=== PATIENT | female | born 2000 | race Two or more races ===

== ENCOUNTER 2024-09-05 12:39 | Emergency (ER) | payer MEDICAID, OTHER ==
[~2024-09-05] VITALS: Ht 157.5 cm; Wt 41.0 kg
[2024-09-05 13:22] VITALS: BP 108/71; PULSE 114; RESP 18; TEMP 98.5; O2SAT 97
[2024-09-05] MEDS: OXYMETAZOLINE HCL 0.05 % NASAL SPRAY 15ML EACHNOSTRI ONE (13:35)
== END 2024-09-05 14:11 | disposition home or self-care (01) ==
LOC: ER 12:39
DX: R04.0 Epistaxis (principal)